=== PATIENT | male | born 1970 | race Caucasian/White ===

== ENCOUNTER 2019-08-09 13:49 | Emergency (ER) | payer OTHER ==
[~2019-08-09] VITALS: Ht 167.6 cm; Wt 99.8 kg
== END 2019-08-09 17:42 | disposition home or self-care (01) ==
LOC: ER 13:49
DX: R59.0 Localized enlarged lymph nodes (principal); J11.1 Influenza due to unidentified influenza virus with other respiratory manifestations; R50.9 Fever, unspecified